=== PATIENT | female | born 1975 | race Caucasian/White ===

== ENCOUNTER 2020-04-27 11:59 | Emergency (ER) | payer SELFPAY ==
[~2020-04-27] VITALS: Ht 180.3 cm; Wt 139.1 kg
[2020-04-27 12:03] VITALS: TEMP 98.4
[2020-04-27] MEDS ORDERED: CYMBALTA 60MG60 MG (12:17)
[2020-04-27] MEDS ORDERED: VRAYLAR3 MG PO (12:17)
[2020-04-27] MEDS ORDERED: LATUDA40 MG PO (12:18)
[2020-04-27] MEDS ORDERED: BUSPAR10 MG PO (12:18)
[2020-04-27] MEDS ORDERED: TIROSINT50 MC1 PO (12:20)
[2020-04-27 13:50] VITALS: BP 113/60; PULSE 96
== END 2020-04-27 14:00 | disposition home or self-care (01) ==
LOC: COL.ER 11:59
DX: M54.5 Low back pain (principal); G89.29 Other chronic pain; E03.9 Hypothyroidism, unspecified; Z79.890 Hormone replacement therapy; Z90.49 Acquired absence of other specified parts of digestive tract; Z88.2 Allergy status to sulfonamides
CPT/HCPCS: J1790; J1885; J2270

== ENCOUNTER 2020-06-02 14:50 | Emergency (ER) | payer SELFPAY ==
[~2020-06-02] VITALS: Ht 177.8 cm; Wt 136.4 kg
[~2020-06-02 14:50] MED LIST: BUSPAR10 MG PO; CYMBALTA 60MG60 MG; LATUDA40 MG PO; TIROSINT50 MC1 PO; VRAYLAR3 MG PO
[2020-06-02 14:57] VITALS: BP 166/116; TEMP 98.3
[2020-06-02] MEDS ORDERED: NEURONTIN300 MG/CAP PO (18:01)
[2020-06-02 18:09] VITALS: PULSE 90
== END 2020-06-02 18:13 | disposition home or self-care (01) ==
LOC: COL.ER 14:50
DX: S33.5XXA Sprain of ligaments of lumbar spine, initial encounter (principal); M25.552 Pain in left hip; Z98.1 Arthrodesis status; Z88.2 Allergy status to sulfonamides; Z98.890 Other specified postprocedural states; W10.9XXA Fall (on) (from) unspecified stairs and steps, initial encounter
CPT/HCPCS: J1885; J2270; J2360

== ENCOUNTER 2020-11-12 18:51 | Emergency (ER) | payer MEDICAID ==
[~2020-11-12] VITALS: Ht 177.8 cm; Wt 136.4 kg
[~2020-11-12 18:51] MED LIST changes: -CYMBALTA 60MG60 MG; +CYMBALTA 60MG60 MG PO; +NEURONTIN300 MG/CAP PO
[2020-11-12 18:59] VITALS: TEMP 98.3
[2020-11-12 19:21] LABS: COLLECTION METHOD CLEAN CATCH
[2020-11-12 19:29] LABS: MUCOUS Present /lpf; PH 5 (5-8); SQUAMOUS EPITHELIAL 0-2 /hpf; URINE APPEARANCE Clear; URINE BACTERIA None Seen /hpf; URINE BILIRUBIN Negative (NEGATIVE); URINE BLOOD 2+ (NEGATIVE); URINE COLOR Yellow; URINE GLUCOSE 3+ (NEGATIVE); URINE KETONE Negative (NEGATIVE); URINE LEUKOCYTE ESTERASE Negative (NEGATIVE); URINE NITRATE Negative (NEGATIVE); URINE PROTEIN(semi-quant) Negative (NEGATIVE); URINE RBC 0-2 /hpf; URINE UROBILINOGEN Negative (NEGATIVE)
[2020-11-12] MEDS ORDERED: ANUSOL-HC SUPPO25 MG RC (19:40)
[2020-11-12] MEDS ORDERED: DULCOLAX STOOL100 MG PO (19:40)
[2020-11-12] MEDS ORDERED: DOXYCYCLINE 10100 MG PO (19:42)
[2020-11-12 20:06] VITALS: BP 182/92; PULSE 86
[2021-02-27] MEDS ORDERED: PRINIVIL5 MG PO (06:20)
[2021-02-27] MEDS ORDERED: GLUCOPHAGE500 MG/TAB PO (06:20)
[2021-02-27] MEDS ORDERED: NEURONTIN300 MG/CAP PO (06:21)
== END 2020-11-12 20:13 | disposition home or self-care (01) ==
LOC: COL.ER 18:51
PROVIDERS: Emergency Medicine
DX: K64.4 Residual hemorrhoidal skin tags (principal); N89.8 Other specified noninflammatory disorders of vagina; Z32.02 Encounter for pregnancy test, result negative
CPT/HCPCS: J0696

== ENCOUNTER 2020-12-24 00:37 | Emergency (ER) | payer MEDICAID ==
[~2020-12-24] VITALS: Ht 177.8 cm; Wt 135.0 kg
[~2020-12-24 00:37] MED LIST changes: +ANUSOL-HC SUPPO25 MG RC; +DOXYCYCLINE 10100 MG PO; +DULCOLAX STOOL100 MG PO
[2020-12-24] MEDS ORDERED: LIDODERM 5% PATC1 EA TP (04:04)
[2020-12-24] MEDS ORDERED: FLEXERIL 1010 MG/TAB PO (04:04)
[2020-12-24 04:23] VITALS: BP 121/86; PULSE 76; TEMP 98.6
[2021-02-27] MEDS ORDERED: PRINIVIL5 MG PO (06:20)
[2021-02-27] MEDS ORDERED: GLUCOPHAGE500 MG/TAB PO (06:20)
[2021-02-27] MEDS ORDERED: NEURONTIN300 MG/CAP PO (06:21)
== END 2020-12-24 04:23 | disposition home or self-care (01) ==
LOC: COL.ER 00:37
DX: M54.5 Low back pain (principal); G89.29 Other chronic pain; E66.9 Obesity, unspecified; Z98.890 Other specified postprocedural states; Z68.41 Body mass index [BMI] 40.0-44.9, adult; W01.0XXA Fall on same level from slipping, tripping and stumbling without subsequent striking against object, initial encounter; Y92.091 Bathroom in other non-institutional residence as the place of occurrence of the external cause
CPT/HCPCS: J1885

== ENCOUNTER 2020-12-28 21:41 | Observation (INO) | payer MEDICAID ==
[~2020-12-28] VITALS: Ht 177.8 cm; Wt 144.0 kg
[~2020-12-28 21:41] MED LIST changes: +FLEXERIL 1010 MG/TAB PO; +LIDODERM 5% PATC1 EA TP
[2020-12-28 22:20] LABS: BASO # 0.1 (0.0-0.2); BASO % 0.6 % (0.0-2.0); EOS # 0.3 (0.0-0.7); EOS % 3.2 % (0-4.0); GRAN # 8.5 (1.4-6.5); GRAN % 79.2 % (42.2-75.2); HEMATOCRIT 39.6 % (37.0-47.0); HEMOGLOBIN 12.9 g/dl (12.5-16.0); LYMPH # 1.2 (1.2-3.4); LYMPH % 11.5 % (20.0-51.0); MEAN CELL VOLUME 88 fl (80.0-100.0); MEAN CORPUSCULAR HEMOGLOBIN 29 pg (27.0-31.0); MEAN CORPUSCULAR HGB CONC 33 g/dl (33.0-37.0); MEAN PLATELET VOLUME 10.3 fl (7.4-10.4); MONO # 0.5 (0.1-0.6); MONO % 4.9 % (1.7-9.3); PLATELET COUNT 153 K/mm3 (130-400); RED BLOOD COUNT 4.52 M/mm3 (4.10-5.30); REDCELL DISTRIBUTION WIDTH-CV 14.1 % (11.5-14.5)
[2020-12-28 22:28] LABS: ALANINE AMINOTRANSFERASE 21 U/L (4-34); ALKALINE PHOSPHATASE 191 U/L (50-136); ANION GAP 10 mmol/L (7-16); AST,SGOT 27 U/L (15-37); BILIRUBIN,TOTAL 0.4 mg/dL (0.0-1.0); BLOOD UREA NITROGEN 10 mg/dL (7-17); CALCIUM 8.9 mg/dL (8.4-10.2); CARBON DIOXIDE 24 mmol/L (22-30); CHLORIDE 104 mmol/L (98-107); CREATININE, serum 0.79 (0.52-1.25); GLUCOSE 270 mg/dL (74-106); POTASSIUM 3.3 mmol/L (3.4-5.0); SODIUM 139 mmol/L (137-145); TOTAL PROTEIN 7.9 gm/dL (6.4-8.2)
[2020-12-28 22:43] LABS: TROPONIN-I < 0.012 ng/mL (0.000-0.035)
[2020-12-29] VITALS (7 sets, daily range): BP systolic 126–161; BP diastolic 71–100; PULSE 82–93; TEMP 97.5–98.4
[2020-12-29 03:41] LABS: BASO # 0.1 (0.0-0.2); BASO % 0.6 % (0.0-2.0); EOS # 0.2 (0.0-0.7); EOS % 2.6 % (0-4.0); GRAN % 77.7 % (42.2-75.2); HEMOGLOBIN 11.5 g/dl (12.5-16.0); LYMPH # 1.2 (1.2-3.4); LYMPH % 13.3 % (20.0-51.0); MEAN CELL VOLUME 89 fl (80.0-100.0); MEAN CORPUSCULAR HEMOGLOBIN 29 pg (27.0-31.0); MEAN CORPUSCULAR HGB CONC 32 g/dl (33.0-37.0); MONO # 0.5 (0.1-0.6); MONO % 5.1 % (1.7-9.3); PLATELET COUNT 136 K/mm3 (130-400); RED BLOOD COUNT 4.04 M/mm3 (4.10-5.30); REDCELL DISTRIBUTION WIDTH-CV 14.2 % (11.5-14.5)
[2020-12-29 03:55] LABS: CALCIUM 8.3 mg/dL (8.4-10.2); CREATININE, serum 0.81 (0.52-1.25)
[2020-12-29 04:26] LABS: TSH w REFLEX 7.75 uIU/mL (0.465-4.680)
--- NOTE | 2020-12-29 05:24 | NUR ---
Received patient from ED at 0236H. Patient is alert and oriented. She is on room air. BLE is swollen, warm and painful to touch and with redness. Patient is in pain with pain score of 8/10. She uses cane to ambulate. She had a recent fall at her home and informed her that she needs to call if she needs to get out of bed. Bed alarm on. Potassium replacement on going. Instructed on her fluid restriction.
--- NOTE | 2020-12-29 07:41 | NUR ---
Patient in bed resting. Alert and oriented x 3. Assessment complete. Multiple scabs noted throughout BUE and BLE, patient states her skin is dry and she keeps scratching at skin causing it to open up. Edema noted to BLE. Patient States numbness to LLE, states it has been going on for about a year but worse since she has had increased swelling to LLE. Patient denies further needs at this time.
--- NOTE | 2020-12-29 10:19 | NUR ---
SW met with patient to complete intake. Patient states that she lives alone in [place], [place]. Next of kin is her mom Suzanne [phone] of [place]. Patient provides that she utilizes a cane, and is independent with ADL's. Patient provides that she does not have a PCP at this time, and she was in the process of getting an appointment prior to hospitalization, but was unsure of who the appointment would be set up with. Patient provides that she utilizes [facility] for her pharmacy and is able to afford her medications. Patient provides that her plan is to go back to her home [place]. Patient stated that she would like to look into obtaining HH services if needed. SW provided documenation on choices for home health, and explained that if HH services is recommended by physician SW will assist in setting up services prior to DC. SW will continue to follow. Plan: Home
--- NOTE | 2020-12-29 13:00 | NUR ---
Contacted Dianne KELLEY for desenex order, patient has redness underneath pannus. Pannus cleaned with cleansing wipes.
--- NOTE | 2020-12-29 18:27 | NUR ---
Patient doing well throughout the day, has been up to recliner today, encouraged increase ambulation. Patient up to restroom throughout the day with SBA and walker, steady gait. Pain medication given throughout the day for LLE pain patient states that when her "left leg has one of those episodes it feels as if though the inside of her leg is shriveling up and dying". Medications given per orders for pain. Patient continues picking at scabs on arms and legs "because she is bored" causing them to bleed. Desenex powder applied to panus. Denies further needs at this time. Will report off to aviation engineer.
--- NOTE | 2020-12-29 20:45 | NUR ---
Initial shift assessment done- moaning, moving around in bed, eyes closed- did awakened to name called- states her pain 9/10 to left leg-- [place] given at this time as ordered- does fall back to sleep while talking with nurse, tele on--getting potassium level rechecked and will follow protocol
[2020-12-30 03:45] VITALS: BP 142/64; PULSE 83; TEMP 97.4
--- NOTE | 2020-12-30 05:46 | NUR ---
Has been sleeping well since last pain pill given around 99-- VSS,,has been up to bathroom a couple times with assist/walker
[2020-12-30 07:20] VITALS: BP 123/64; PULSE 80; TEMP 98
[2020-12-30 08:48] LABS: BASO % 0.4 % (0.0-2.0); EOS # 0.3 (0.0-0.7); GRAN # 5.3 (1.4-6.5); GRAN % 73.4 % (42.2-75.2); HEMATOCRIT 34.8 % (37.0-47.0); HEMOGLOBIN 11.4 g/dl (12.5-16.0); LYMPH % 13.9 % (20.0-51.0); MEAN CELL VOLUME 87 fl (80.0-100.0); MEAN CORPUSCULAR HEMOGLOBIN 29 pg (27.0-31.0); MEAN CORPUSCULAR HGB CONC 33 g/dl (33.0-37.0); MEAN PLATELET VOLUME 10.9 fl (7.4-10.4); MONO # 0.6 (0.1-0.6); MONO % 7.9 % (1.7-9.3); PLATELET COUNT 119 K/mm3 (130-400); RED BLOOD COUNT 3.98 M/mm3 (4.10-5.30); REDCELL DISTRIBUTION WIDTH-CV 14.3 % (11.5-14.5)
[2020-12-30 09:02] LABS: CALCIUM 7.9 mg/dL (8.4-10.2); CREATININE, serum 0.74 (0.52-1.25); POTASSIUM 3.7 mmol/L (3.4-5.0)
[2020-12-30] MEDS ORDERED: ZESTRIL 5MG5 MG PO (10:13)
[2020-12-30] MEDS ORDERED: NEURONTIN300 MG/CAP PO (10:14)
[2020-12-30] MEDS ORDERED: DESENEX TP (10:15)
[2020-12-30] MEDS ORDERED: GLUCOPHAGE500 MG/TAB PO (10:16)
--- NOTE | 2020-12-30 10:33 | NUR ---
PT C/O L LEG PAIN INTO LOW BACK , NORCO GIVEN WITH SYNTHROID, ASSESSMENT PERFORMED, WATER BROUGHT IN, VITALS TAKEN AND ASSESSED, NO OTHER NEEDS.
--- NOTE | 2020-12-30 11:17 | NUR ---
DISCHARGE EDUCATION PROVIDED, EDUCATED ON NEW MEDICATIONS, PT SEEMED SURPRISED AT STARTING METFORMIN AND SAID SHE DIDN'T KNOW SHE HAD DIABETES. EDUCATED PT ON INC HAIC AND THE INDICATIONS FOR MEDICATION TO CONTROL SUGAR. EDUCATED ON WHAT DIABETES WAS AND HOW SHE WOULD HAVE TO LIMIT CARBS AND SUGARS, EDUCATED ON S/S OF LOW BS. NOTIFIED TRENTON KELLEY PT WAS UNAWARE OF DIABETES DIAGNOSIS AND SHE WOULD GO TALK WITH HER. PRINTED EDUCATED PACKETS ON DM AND DM DIET. NO OTHER QUESTIONS AT THIS TIME. IV REMOVED, NO OTHER NEEDS
--- NOTE | 2020-12-30 12:00 | NUR ---
pt escorted out via wheelchair
--- NOTE | 2020-12-30 15:23 | NUR ---
SW reviewed HH documenation for patient. Patient does not have a PCP and will need one prior to obtaining services from HH agency. SW called to inform patient name and number of agency once PCP has been established.
--- NOTE | 2020-12-31 10:14 | NUR ---
Sayda, at [facility] , contacted this and inquired about the patient. SW informed her that the patient discharged yesterday, 12/31. Sayda reports that the patient is self pay and would have an out of pocket cost of around $200 per visit. Sayda reports that she will reach out to the patient and see if she wants to pursue services. NEHEMIAS faxed the patient's d/c orders to [facility].
[2021-02-27] MEDS ORDERED: PRINIVIL5 MG PO (06:20)
[2021-02-27] MEDS ORDERED: GLUCOPHAGE500 MG/TAB PO (06:20)
[2021-02-27] MEDS ORDERED: NEURONTIN300 MG/CAP PO (06:21)
== END 2020-12-30 12:00 | disposition home or self-care (01) ==
LOC: COL.ER 21:41 → MEDICAL 12-29 01:03
PROVIDERS: Nurse Practitioner Family; Nurse Practitioner Primary Care; Physician Assistant; ADMIT Hospitalist
DX: R60.0 Localized edema (principal); I10 Essential (primary) hypertension; D69.6 Thrombocytopenia, unspecified; E87.6 Hypokalemia; E11.9 Type 2 diabetes mellitus without complications; E03.9 Hypothyroidism, unspecified; E66.01 Morbid (severe) obesity due to excess calories; R53.1 Weakness; G89.29 Other chronic pain; M54.9 Dorsalgia, unspecified; F41.9 Anxiety disorder, unspecified; F32.9 Major depressive disorder, single episode, unspecified; Z79.890 Hormone replacement therapy; Z79.899 Other long term (current) drug therapy; Z79.84 Long term (current) use of oral hypoglycemic drugs; G25.81 Restless legs syndrome
CPT/HCPCS: 99239; G0378; J1170; J1650; J1940; J2270; J2543; Q9967

== ENCOUNTER 2021-01-16 02:17 | Emergency (ER) | payer MEDICAID ==
[~2021-01-16] VITALS: Ht 177.8 cm; Wt 143.2 kg
[~2021-01-16 02:17] MED LIST changes: +DESENEX TP; +GLUCOPHAGE500 MG/TAB PO; +ZESTRIL 5MG5 MG PO
[2021-01-16 03:12] LABS: BASO # 0.1 (0.0-0.2); BASO % 0.5 % (0.0-2.0); EOS # 0.2 (0.0-0.7); EOS % 2.3 % (0-4.0); GRAN # 8.1 (1.4-6.5); LYMPH # 1.1 (1.2-3.4); LYMPH % 11.2 % (20.0-51.0); MEAN CELL VOLUME 88 fl (80.0-100.0); MEAN CORPUSCULAR HEMOGLOBIN 29 pg (27.0-31.0); MEAN CORPUSCULAR HGB CONC 33 g/dl (33.0-37.0); MEAN PLATELET VOLUME 11.2 fl (7.4-10.4); MONO # 0.5 (0.1-0.6); MONO % 5.3 % (1.7-9.3); PLATELET COUNT 150 K/mm3 (130-400); RED BLOOD COUNT 4.54 M/mm3 (4.10-5.30); REDCELL DISTRIBUTION WIDTH-CV 14.3 % (11.5-14.5)
[2021-01-16 03:20] LABS: ALBUMIN 3.9 gm/dL (3.5-5.0); BILIRUBIN,TOTAL 0.7 mg/dL (0.0-1.0); CALCIUM 9.2 mg/dL (8.4-10.2); CREATININE, serum 0.7 (0.52-1.25); POTASSIUM 4.7 mmol/L (3.4-5.0); TOTAL PROTEIN 7.9 gm/dL (6.4-8.2)
[2021-01-16] MEDS ORDERED: CEPHALEXIN500 M1 PO (04:48)
[2021-01-16] MEDS ORDERED: NORCO 325 MG-51 TAB PO (04:48)
[2021-01-16] MEDS ORDERED: LASIX 40MG TABL40 MG PO (04:48)
[2021-01-16 05:05] VITALS: BP 138/80; PULSE 78
[2021-02-27] MEDS ORDERED: GLUCOPHAGE500 MG/TAB PO (06:20)
[2021-02-27] MEDS ORDERED: PRINIVIL5 MG PO (06:20)
[2021-02-27] MEDS ORDERED: NEURONTIN300 MG/CAP PO (06:21)
== END 2021-01-16 05:05 | disposition home or self-care (01) ==
LOC: COL.ER 02:17
PROVIDERS: Personal Emergency Response Attendant
DX: L02.612 Cutaneous abscess of left foot (principal); L02.611 Cutaneous abscess of right foot; E66.9 Obesity, unspecified; F32.9 Major depressive disorder, single episode, unspecified; E89.0 Postprocedural hypothyroidism; G89.29 Other chronic pain; M54.9 Dorsalgia, unspecified; Z79.899 Other long term (current) drug therapy; Z79.890 Hormone replacement therapy
CPT/HCPCS: J0696; J1815; J1940; J2060; J2270

== ENCOUNTER 2021-01-20 07:38 | Emergency (ER) | payer MEDICAID ==
[~2021-01-20] VITALS: Ht 177.8 cm; Wt 143.2 kg
[~2021-01-20 07:38] MED LIST changes: +CEPHALEXIN500 M1 PO; +LASIX 40MG TABL40 MG PO; +NORCO 325 MG-51 TAB PO
[2021-01-20 07:44] VITALS: BP 116/75; PULSE 98; TEMP 98.1
[2021-01-20] MEDS ORDERED: LASIX 40MG TABL40 MG PO (09:21)
[2021-02-27] MEDS ORDERED: PRINIVIL5 MG PO (06:20)
[2021-02-27] MEDS ORDERED: GLUCOPHAGE500 MG/TAB PO (06:20)
[2021-02-27] MEDS ORDERED: NEURONTIN300 MG/CAP PO (06:21)
== END 2021-01-20 10:04 | disposition home or self-care (01) ==
LOC: COL.ER 07:38
DX: R60.0 Localized edema (principal); F32.9 Major depressive disorder, single episode, unspecified; E03.9 Hypothyroidism, unspecified; G89.29 Other chronic pain; M54.9 Dorsalgia, unspecified; E66.9 Obesity, unspecified; Z68.42 Body mass index [BMI] 45.0-49.9, adult; Z79.890 Hormone replacement therapy; Z79.899 Other long term (current) drug therapy

== ENCOUNTER 2021-01-26 14:55 | Observation (INO) | payer MEDICAID ==
[~2021-01-26] VITALS: Ht 177.8 cm; Wt 136.0 kg
[2021-01-26 15:52] LABS: BASO # 0.1 (0.0-0.2); BASO % 0.5 % (0.0-2.0); EOS # 0.2 (0.0-0.7); EOS % 2.2 % (0-4.0); GRAN # 7.1 (1.4-6.5); GRAN % 75.2 % (42.2-75.2); HEMATOCRIT 42.3 % (37.0-47.0); HEMOGLOBIN 13.6 g/dl (12.5-16.0); LYMPH # 1.4 (1.2-3.4); LYMPH % 15.3 % (20.0-51.0); MEAN CELL VOLUME 88 fl (80.0-100.0); MEAN CORPUSCULAR HEMOGLOBIN 28 pg (27.0-31.0); MEAN CORPUSCULAR HGB CONC 32 g/dl (33.0-37.0); MEAN PLATELET VOLUME 10.6 fl (7.4-10.4); MONO # 0.6 (0.1-0.6); MONO % 6.5 % (1.7-9.3); PLATELET COUNT 168 K/mm3 (130-400); RED BLOOD COUNT 4.79 M/mm3 (4.10-5.30); REDCELL DISTRIBUTION WIDTH-CV 13.7 % (11.5-14.5)
[2021-01-26 15:58] LABS: ALANINE AMINOTRANSFERASE 17 U/L (4-34); ALKALINE PHOSPHATASE 142 U/L (50-136); ANION GAP 8 mmol/L (7-16); AST,SGOT 21 U/L (15-37); BILIRUBIN,TOTAL 0.5 mg/dL (0.0-1.0); BLOOD UREA NITROGEN 18 mg/dL (7-17); CALCIUM 9.2 mg/dL (8.4-10.2); CARBON DIOXIDE 27 mmol/L (22-30); CHLORIDE 101 mmol/L (98-107); CREATININE, serum 0.86 (0.52-1.25); GLUCOSE 272 mg/dL (74-106); POTASSIUM 3.8 mmol/L (3.4-5.0); SODIUM 135 mmol/L (137-145)
[2021-01-26 16:17] LABS: TROPONIN-I < 0.012 ng/mL (0.000-0.035)
[2021-01-26] MEDS ORDERED: MOTRIN 800800 MG/TAB PO (17:55)
[2021-01-26] MEDS ORDERED: AMOXICILLIN 8751 TAB PO (17:55)
[2021-01-26 20:12] LABS: ARTERIAL BLD GAS O2 SATURATION 96.2 % (92-100); ARTERIAL BLD GAS TCO2 CT 27.9; ARTERIAL BLOOD GAS HCO3 26.5 meq/L (22-26); ARTERIAL BLOOD GAS PCO2 45.4 mmHg (35-45); ARTERIAL BLOOD GAS PO2 82.6 mmHg (80-100); ARTERIAL BLOOD GAS pH 7.38 (7.35-7.45)
[2021-01-27 04:31] VITALS: BP 109/74; PULSE 97; TEMP 97.8
--- NOTE | 2021-01-27 04:39 | NUR ---
Awake, alert, oriented x 4, able to make needs known, no s/s of hypo/hyper glycemia, telemetry in use, oriented to room, updated on plan of care.
[2021-01-27 06:18] LABS: BASO % 0.5 % (0.0-2.0); EOS # 0.1 (0.0-0.7); EOS % 1.6 % (0-4.0); GRAN # 6.1 (1.4-6.5); GRAN % 74.9 % (42.2-75.2); HEMATOCRIT 39.7 % (37.0-47.0); HEMOGLOBIN 12.6 g/dl (12.5-16.0); LYMPH # 1.2 (1.2-3.4); LYMPH % 15.3 % (20.0-51.0); MEAN CELL VOLUME 89 fl (80.0-100.0); MEAN CORPUSCULAR HEMOGLOBIN 28 pg (27.0-31.0); MEAN CORPUSCULAR HGB CONC 32 g/dl (33.0-37.0); MEAN PLATELET VOLUME 10.3 fl (7.4-10.4); MONO # 0.6 (0.1-0.6); MONO % 7.3 % (1.7-9.3); PLATELET COUNT 148 K/mm3 (130-400); RED BLOOD COUNT 4.47 M/mm3 (4.10-5.30)
[2021-01-27 06:28] LABS: CHOLESTEROL RISK RATIO 5.7
[2021-01-27 08:00] VITALS: BP 102/75; PULSE 91; TEMP 97.9
--- NOTE | 2021-01-27 10:21 | NUR ---
Patient resting in bed. Tired. Reports not getting much sleep in the past few days. She has been tired. Motrin as scheduled for shoulder pain. Will monitor.
[2021-01-27 11:35] VITALS: BP 123/78; PULSE 108; TEMP 98.8
--- NOTE | 2021-01-27 14:24 | NUR ---
Sw spoke with the pt via phone to complete intake. The pt informed Sw that her preference to return home once medically stable. The pt lives at home in [place]. The pt does not have a NK or emergency contact that she would like to give. The pt is independent on all ADLs and uses a Cane, glucometer. The pt pcp is through [facility], but does not remember her PCP name. The pt recieves her medications from [facility] and has no trouble obtaining them. The pt does not have a [facility] and is not interested in one at this time. No other needs stated at this time. Sw to await further recommendations and follow up as needed. D/C: Home
--- NOTE | 2021-01-27 15:00 | NUR ---
PT ROOM BEING CLEANED, RT THOUGHT PT HAD GONE HOME
[2021-01-27 16:00] VITALS: BP 93/50; PULSE 88; TEMP 97.8
--- NOTE | 2021-01-27 19:48 | NUR ---
Patient slept alot of the day, reports feeling better after sleep. Her Iv in her RAC Dc & new Iv to Lfa. Antibioitcs as ordered. Motrin for pain per request. She has tolerated meals, denies nausea. Vss on room air. Tele on. Report to iwona
[2021-01-27 20:25] VITALS: BP 102/52; PULSE 73; TEMP 97.7
--- NOTE | 2021-01-27 23:06 | NUR ---
Pt has been sleeping all evening but arousable with stimulation.VSS.pain rated 0/10. Will continue to monitor.
[2021-01-28] VITALS (7 sets, daily range): BP systolic 86–134; BP diastolic 46–91; PULSE 73–91; TEMP 97.5–98.1
[2021-01-28 07:28] LABS: BASO % 0.5 % (0.0-2.0); EOS # 0.2 (0.0-0.7); EOS % 2.1 % (0-4.0); GRAN # 5.7 (1.4-6.5); GRAN % 74.7 % (42.2-75.2); HEMATOCRIT 39.9 % (37.0-47.0); HEMOGLOBIN 12.8 g/dl (12.5-16.0); LYMPH # 1.1 (1.2-3.4); LYMPH % 14.9 % (20.0-51.0); MEAN CELL VOLUME 90 fl (80.0-100.0); MEAN CORPUSCULAR HEMOGLOBIN 29 pg (27.0-31.0); MEAN CORPUSCULAR HGB CONC 32 g/dl (33.0-37.0); MEAN PLATELET VOLUME 10.5 fl (7.4-10.4); MONO # 0.6 (0.1-0.6); MONO % 7.4 % (1.7-9.3); PLATELET COUNT 131 K/mm3 (130-400); RED BLOOD COUNT 4.45 M/mm3 (4.10-5.30)
[2021-01-28 07:31] LABS: CALCIUM 8.9 mg/dL (8.4-10.2); CREATININE, serum 0.84 (0.52-1.25)
--- NOTE | 2021-01-28 10:23 | NUR ---
Patient resting in bed. She was awake & alert with breakfast. Did not need sliding scale insulin coverage. Reports back pain, motrin as scheduled. Vss, tele on. Room air. Echo completed. Hospitals[facility] rounded. Will monitor.
--- NOTE | 2021-01-28 12:19 | NUR ---
Patient up to the chair. Reports continued back pain. Tyelnol PRN. Patient provided with mesh underwhere & pad, menstration cycle started. Fresh linens provided. Lunch ordered. Jone portillo.
--- NOTE | 2021-01-28 12:25 | NUR ---
Initial visit; Patient thanked [employer] Offbearer for looking in on her and offering God's blessings. [employer] Offbearer will keep patient in her prayers.
--- NOTE | 2021-01-28 18:56 | NUR ---
Patient resting in bed. She is aware of plan of care, cardiology rounding in the AM. Patient did have an episode of nausea. Katelyn Stoddard notifed & zofrivy ordered. Tyelnol for shoulder pain. She tolerated dinner. Bedside report to Emmett bustillo
--- NOTE | 2021-01-28 21:18 | NUR ---
pt is still a litlle drowsy but arousable with stimilation. BP is little soft. Will continue to monitor.
[2021-01-29 03:54] VITALS: BP 123/75; PULSE 84; TEMP 97.7
[2021-01-29 07:34] LABS: BASO % 0.6 % (0.0-2.0); EOS # 0.2 (0.0-0.7); GRAN # 4.9 (1.4-6.5); GRAN % 71.6 % (42.2-75.2); HEMATOCRIT 41.1 % (37.0-47.0); HEMOGLOBIN 13.1 g/dl (12.5-16.0); LYMPH # 1.2 (1.2-3.4); LYMPH % 17.7 % (20.0-51.0); MEAN CELL VOLUME 91 fl (80.0-100.0); MEAN CORPUSCULAR HEMOGLOBIN 29 pg (27.0-31.0); MEAN CORPUSCULAR HGB CONC 32 g/dl (33.0-37.0); MEAN PLATELET VOLUME 10.5 fl (7.4-10.4); MONO # 0.5 (0.1-0.6); MONO % 6.8 % (1.7-9.3); PLATELET COUNT 145 K/mm3 (130-400); RED BLOOD COUNT 4.51 M/mm3 (4.10-5.30); REDCELL DISTRIBUTION WIDTH-CV 13.8 % (11.5-14.5)
[2021-01-29 07:45] LABS: ALBUMIN 3.6 gm/dL (3.5-5.0); CALCIUM 9.1 mg/dL (8.4-10.2); CREATININE, serum 0.85 (0.52-1.25); PHOSPHOROUS 3.8 mg/dL (2.5-4.5); POTASSIUM 4.3 mmol/L (3.4-5.0)
[2021-01-29 07:47] VITALS: BP 117/81; PULSE 94; TEMP 99.4
--- NOTE | 2021-01-29 09:30 | NUR ---
Patient alert and oriented, answers questions appropriately. See assessment. No c/o chest pain or pressure. Heart tones strong and even. No c/o at this time.
[2021-01-29] MEDS ORDERED: OMNICEF 300MG300 MG PO (09:31)
[2021-01-29] MEDS ORDERED: PROTONIX 40MG T40 MG PO (09:35)
--- NOTE | 2021-01-29 11:53 | NUR ---
Discharge instructions reviewed with patient, verbalized understanding. Discharged via wheelchair to auto/home with family at 1107.
[2021-02-27] MEDS ORDERED: GLUCOPHAGE500 MG/TAB PO (06:20)
[2021-02-27] MEDS ORDERED: PRINIVIL5 MG PO (06:20)
[2021-02-27] MEDS ORDERED: NEURONTIN300 MG/CAP PO (06:21)
== END 2021-01-29 11:07 | disposition home or self-care (01) ==
LOC: COL.ER 14:55 → SURG 19:27
PROVIDERS: Emergency Medicine; Nurse Practitioner Family; Personal Emergency Response Attendant; Student in an Organized Health Care Education/Training Program
DX: R07.89 Other chest pain (principal); J96.01 Acute respiratory failure with hypoxia; I10 Essential (primary) hypertension; E11.21 Type 2 diabetes mellitus with diabetic nephropathy; E66.01 Morbid (severe) obesity due to excess calories; E89.0 Postprocedural hypothyroidism; F41.9 Anxiety disorder, unspecified; Z20.822 Contact with and (suspected) exposure to COVID-19; F32.9 Major depressive disorder, single episode, unspecified; E27.8 Other specified disorders of adrenal gland; G89.29 Other chronic pain; G25.81 Restless legs syndrome; M54.9 Dorsalgia, unspecified; Z68.41 Body mass index [BMI] 40.0-44.9, adult; Z79.84 Long term (current) use of oral hypoglycemic drugs; Z79.890 Hormone replacement therapy
CPT/HCPCS: 99223-AI; 99232-AI; 99239; C8924; C9113; G0378; J0456; J0696; J1650; J1815; J1940; J2270; J2405; J7050; Q9957; Q9967

== ENCOUNTER 2021-02-14 09:26 | Emergency (ER) | payer MEDICAID ==
[~2021-02-14] VITALS: Ht 177.8 cm; Wt 136.4 kg
[~2021-02-14 09:26] MED LIST changes: +AMOXICILLIN 8751 TAB PO; +MOTRIN 800800 MG/TAB PO; +OMNICEF 300MG300 MG PO; +PROTONIX 40MG T40 MG PO
[2021-02-14 10:08] VITALS: TEMP 99.1
[2021-02-14] MEDS ORDERED: NEURONTIN300 MG/CAP PO ×4 (10:21→11:09)
[2021-02-14 11:04] VITALS: BP 109/74; PULSE 87
[2021-02-14] MEDS ORDERED: LASIX 20MG TABL20 MG PO (11:04)
[2021-02-27] MEDS ORDERED: GLUCOPHAGE500 MG/TAB PO (06:20)
[2021-02-27] MEDS ORDERED: PRINIVIL5 MG PO (06:20)
[2021-02-27] MEDS ORDERED: NEURONTIN300 MG/CAP PO (06:21)
== END 2021-02-14 11:10 | disposition home or self-care (01) ==
LOC: COL.ER 09:26
DX: M79.2 Neuralgia and neuritis, unspecified (principal); E11.21 Type 2 diabetes mellitus with diabetic nephropathy; I10 Essential (primary) hypertension; E66.9 Obesity, unspecified; E03.9 Hypothyroidism, unspecified; F41.9 Anxiety disorder, unspecified; F32.9 Major depressive disorder, single episode, unspecified; Z76.0 Encounter for issue of repeat prescription; Z68.41 Body mass index [BMI] 40.0-44.9, adult; Z79.899 Other long term (current) drug therapy; Z79.84 Long term (current) use of oral hypoglycemic drugs; Z79.890 Hormone replacement therapy

== ENCOUNTER 2023-08-08 18:24 | Emergency (ER) | payer MEDICARE, MEDICAID ==
[~2023-08-08] VITALS: Ht 177.8 cm; Wt 113.6 kg
[~2023-08-08 18:24] MED LIST changes: +LASIX 20MG TABL20 MG PO; +PRINIVIL5 MG PO
[2023-08-08] MEDS ORDERED: Ibuprofen 600 MG TAB PO ONE (18:45)
[2023-08-08 19:23] LABS: ALBUMIN 2.9 gm/dL (3.5-5.0); BILIRUBIN,TOTAL 0.2 mg/dL (0.2-1.2); CALCIUM 8.6 mg/dL (8.4-10.2); CREATININE, serum 0.76 mg/dL (0.57-1.11); POTASSIUM 3.6 mmol/L (3.5-4.5); TOTAL PROTEIN 6.8 gm/dL (6.2-8.1)
[2023-08-08 19:42] LABS: COLLECTION METHOD CLEAN CATCH
[2023-08-08 19:45] LABS: HEMOGLOBIN 11.8 g/dl (12.5-16.0); MEAN CELL VOLUME 87 fl (80.0-100.0); MEAN CORPUSCULAR HEMOGLOBIN 29 pg (27-31); MEAN CORPUSCULAR HGB CONC 33 g/dl (33.0-37.0); PLATELET COUNT 146 K/mm3 (130-400); RED BLOOD COUNT 4.12 M/mm3 (4.10-5.30); REDCELL DISTRIBUTION WIDTH-CV 13.4 % (11.5-14.5)
[2023-08-08 19:54] LABS: PH 5.5 (5.0-8.5); URINE APPEARANCE Hazy (CLEAR/HAZY); URINE BLOOD Negative (NEGATIVE); URINE COLOR Yellow (YELLOW); URINE GLUCOSE Negative (NEGATIVE); URINE KETONE TRACE (NEGATIVE); URINE NITRATE Negative (NEGATIVE); URINE PROTEIN(semi-quant) Negative (NEGATIVE); URINE RBC 0-2 /hpf (0-2); URINE UROBILINOGEN 0.2 E.U/dL (0.2-1.0)
[2023-08-08 19:56] LABS: HEMATOCRIT 35.8 % (37.0-47.0)
[2023-08-08 20:02] LABS: BAND 6 % (0-10); EOSINOPHIL 2 % (0-4); LYMPHOCYTE 25 % (20.0-51.0); NEUTROPHILS 60 % (42.0-75.2); PLATELET ESTIMATE NORMAL (NORMAL)
[2023-08-08 20:03] LABS: ACETAMINOPHEN < 7.0 ug/mL (10-30)
[2023-08-08 20:05] LABS: ALCOHOL(ethanol),MEDICAL < 10 mg/dL (0-10); SALICYLATE < 5.0 mg/dL (15.0-30.0)
[2023-08-08 20:05] LABS: TRICYCLIC ANTIDEPRESS URINE NEGATIVE (NEGATIVE)
[2023-08-09] MEDS ORDERED: Acetaminophen 500 MG TAB PO ONE (01:00)
[2023-08-09] MEDS ORDERED: LORazepam 1 MG TAB PO ONE (01:00)
[2023-08-09] MEDS ORDERED: NS 74 ML IV SCH (02:07)
[2023-08-09] MEDS ORDERED: Iohexol 300 - 100 ML VIAL IV ONE (02:07)
[2023-08-09] MEDS ORDERED: Escitalopram 10 MG TAB PO SCH (09:43)
[2023-08-09] MEDS ORDERED: Ibuprofen 600 MG TAB PO ONE (14:00)
[2023-08-09] MEDS ORDERED: Acetaminophen 325 MG TAB PO ONE (21:45)
[2023-08-10] MEDS ORDERED: Albuterol 0.083% Neb Soln 2.5 MG/3 ML UD IH ONE (05:30)
[2023-08-10] MEDS ORDERED: Ibuprofen 600 MG TAB PO ONE ×2 (10:15→23:30)
[2023-08-10] MEDS ORDERED: Acetaminophen 500 MG TAB PO ONE (23:45)
[2023-08-11] MEDS ORDERED: Acetaminophen 500 MG TAB PO ONE (09:15)
[2023-08-11] MEDS ORDERED: Ibuprofen 600 MG TAB PO ONE (09:15)
--- NOTE | 2023-08-11 14:58 | NUR ---
industrial workers was informed pt needs assistance setting up Medicaid [employer] transportation to [facility] in [place], [place]. SW called [phone] to discuss this. A ride had been created it was discovered, time of creation was unable to be confirmed. They informed to call back in about two hours, 4:51pm if transportation was not arranged. NEHEMIAS provided pt's number per request and informed to call RN at [phone]. Reference number is: [id number] to call and request dispatch. Medicaid attendant went over insurance coverage to see if [employer]/Lyft was covered by insurance, it is not. NEHEMIAS informed Director Raya Aquino who informed Handle Sander Operator.
[2023-08-11] MEDS ORDERED: Ibuprofen 200 MG TAB PO ONE (20:15)
[2023-08-12] MEDS ORDERED: Acetaminophen 500 MG TAB PO ONE (11:00)
--- NOTE | 2023-08-12 15:12 | NUR ---
vacuum worker contacted Caitlin Feliciano at [email or web address] and requested a Transportation exception to cross State lines so that patient can get to a treatment facility in [place], [place]. Awaiting word from [facility]. Worker collaborated with [facility] and the ED team regarding the above information.
[2023-08-12] MEDS ORDERED: Ibuprofen 400 MG TAB PO ONE (19:30)
[2023-08-13] MEDS ORDERED: Ibuprofen 600 MG TAB PO ONE (09:30)
[2023-08-14] MEDS ORDERED: Ibuprofen 600 MG TAB PO ONE (01:45)
[2023-08-15 00:47] VITALS: BP 110/63; PULSE 84; TEMP 98
== END 2023-08-15 00:45 ==
LOC: COL.ER 18:24
PROVIDERS: Nurse Practitioner
DX: R07.9 Chest pain, unspecified (principal); R45.851 Suicidal ideations
CPT/HCPCS: Q9967

== ENCOUNTER → 2024-04-18 | Outpatient (CLI) | payer MEDICAID ==
[~2024-04-18] MED LIST changes: +NAPROSYN500 MG PO
[2024-04-18 09:35] LABS: BASO % 0.3 % (0.0-2.0); EOS # 0.2 K/mm3 (0.0-0.7); EOS % 2.9 % (0.0-4.0); GRAN # 4.4 K/mm3 (1.4-6.5); GRAN % 71.7 % (42.2-75.2); HEMATOCRIT 37.9 % (37.0-47.0); HEMOGLOBIN 12.2 g/dl (12.5-16.0); LYMPH % 15.6 % (20.0-51.0); MEAN CELL VOLUME 89 fl (80.0-100.0); MEAN CORPUSCULAR HEMOGLOBIN 29 pg (27-31); MEAN CORPUSCULAR HGB CONC 32 g/dl (33.0-37.0); MEAN PLATELET VOLUME 9.6 fl (7.4-10.4); MONO # 0.6 K/mm3 (0.1-0.6); PLATELET COUNT 149 K/mm3 (130-400); RED BLOOD COUNT 4.27 M/mm3 (4.10-5.30); REDCELL DISTRIBUTION WIDTH-CV 14.4 % (11.5-14.5)
[2024-04-18 09:55] LABS: ALBUMIN 2.9 g/dL (3.5-5.0); BILIRUBIN,TOTAL 0.4 mg/dL (0.2-1.2); CALCIUM 9.1 mg/dL (8.4-10.2); CHOLESTEROL RISK RATIO 3.9; CREATININE, serum 0.81 mg/dL (0.57-1.11); POTASSIUM 4.3 mEq/L (3.5-4.5); TOTAL PROTEIN 6.3 g/dl (6.2-8.1)
[2024-04-18 10:43] LABS: THYROID STIMULATING HORMONE 0.45 uIU/mL (0.350-4.940)
== END ==
LOC: COL.LAB 08:37
PROVIDERS: Nurse Practitioner Adult Health
DX: Z51.81 Encounter for therapeutic drug level monitoring (principal); Z79.899 Other long term (current) drug therapy

== ENCOUNTER 2024-04-30 18:59 | Emergency (ER) | payer MEDICAID ==
[~2024-04-30] VITALS: Ht 177.8 cm; Wt 109.1 kg
[2024-04-30 19:05] VITALS: BP 126/81; TEMP 98.6
[2024-04-30 20:25] LABS: BASO # 0.1 K/mm3 (0.0-0.2); BASO % 0.7 % (0.0-2.0); EOS # 0.2 K/mm3 (0.0-0.7); EOS % 2.6 % (0.0-4.0); GRAN # 4.9 K/mm3 (1.4-6.5); GRAN % 70.9 % (42.2-75.2); LYMPH % 14.9 % (20.0-51.0); MEAN CELL VOLUME 90 fl (80.0-100.0); MEAN CORPUSCULAR HEMOGLOBIN 29 pg (27-31); MEAN CORPUSCULAR HGB CONC 33 g/dl (33.0-37.0); MEAN PLATELET VOLUME 9.6 fl (7.4-10.4); MONO # 0.7 K/mm3 (0.1-0.6); MONO % 10.5 % (1.7-9.3); PLATELET COUNT 146 K/mm3 (130-400); RED BLOOD COUNT 4.09 M/mm3 (4.10-5.30); REDCELL DISTRIBUTION WIDTH-CV 14.3 % (11.5-14.5)
[2024-04-30 20:29] LABS: HEMATOCRIT 36.9 % (37.0-47.0)
[2024-04-30 20:44] LABS: ALBUMIN 3.1 g/dL (3.5-5.0); BILIRUBIN,TOTAL 0.4 mg/dL (0.2-1.2); C-REACTIVE PROTEIN 3.69 mg/dL (0.00-0.50); CALCIUM 9.3 mg/dL (8.4-10.2); CREATININE, serum 0.8 mg/dL (0.57-1.11); POTASSIUM 3.8 mEq/L (3.5-4.5); TOTAL PROTEIN 6.7 g/dl (6.2-8.1)
[2024-04-30] MEDS ORDERED: Cephalexin 500 MG CAP PO ONE (22:30)
[2024-04-30] MEDS ORDERED: Home HYDROcodone/Acetaminophen 5/325 MG #4 TABS/PACK PO ONE (22:30)
[2024-04-30] MEDS ORDERED: CEPHALEXIN500 M1 PO (22:41)
[2024-04-30 22:51] VITALS: PULSE 103
== END 2024-04-30 21:51 | disposition home or self-care (01) ==
LOC: COL.ER 18:59
PROVIDERS: Nurse Practitioner
DX: R60.0 Localized edema (principal); L03.115 Cellulitis of right lower limb